=== PATIENT | male | born 1940 | race Caucasian/White ===

== ENCOUNTER → 2024-06-24 16:11 | Outpatient (REF) | payer OTHER, SELFPAY | LOC: RAD 16:11 | PROVIDERS: ATTENDING PHYSICIAN Student in an Organized Health Care Education/Training Program | DX: J18.9 Pneumonia, unspecified organism (principal) | CPT/HCPCS: 71046 ==

== ENCOUNTER 2025-01-08 16:23 | Inpatient (IN) | payer OTHER, SELFPAY ==
[2025-01-08 13:20] VITALS: BMI 31.6
[2025-01-08 13:22] VITALS: BP 169/66
--- NOTE | 2025-01-08 13:25 | ED.GENMED ---
History of Present Illness
General
Chief Complaint: Abdominal Symptoms
Source: patient
Exam Limitations: none
Time Seen by Provider: 01/08/25 13:19
History of Present Illness
History of Present Illness:
See MDM
Past History
Past History
ED Past Medical History: HTN
Social History
Tobacco: Non-smoker
Alcohol: None
Phy Exam
Physical Exam
Physical Exam:
See MDM
Course
Orders/Labs/Results
Orders:
Orders
01/08/25 13:19
IV Insert/Care/Rem.- Treatment PRN
Urinalysis Reflex To Culture Urgent
Date Specimen was Collected: 01/08/25
Time Specimen was Collected: 13:19
01/08/25 13:20
0.9% Sodium Chloride 1000 ml [Nss] 1,000 ml IV BOLUS
Morphine Sulfate 4 mg IV NOW STA
Ondansetron Injectable [Zofran] 4 mg IV NOW STA
Obstruct Series W/PA Chest [CR Obstruct Series W/pa Chest] Urgent
Comment:
Reason For Exam: abd distention and pain
01/08/25 13:22
Complete Blood Count/With Diff Urgent
Comprehensive Metabolic Panel Urgent
Lipase Urgent
01/08/25 13:24
Lipase Urgent
01/08/25 13:25
Electrocardiogram (*1) Urgent
Reason for Study: Abdominal Pain
EKG- Treatment ONCE
01/08/25 13:56
CT Abd/pelvis Wo Iv Cont Urgent
Reason For Exam: abd pain and distention
01/08/25 13:57
HYDROmorphone [Dilaudid] 1 mg IV NOW STA
01/08/25 14:12
PTT Urgent
Prothrombin Time Urgent
01/08/25 15:38
Consult Urology [UROLOGY CONSULT] Urgent
Consulting Provider: Danny Kendall
Was physician already notified: Yes
Abnormal Lab Results
01/08/25 01/08/25
13: 14:12
RBC 3.92 L 10^6/uL
(4.70-6.10)
Hgb 11.3 L g/dL
(13.0-18.0)
Hct 33.2 L %
(39.0-52.0)
Abs Immat Gran (auto) 0.1 H 10^3/uL
(0-0.05)
Absolute Neuts (auto) 8.2 H 10^3/uL
(1.4-6.5)
Absolute Monos (auto) 0.9 H 10^3/uL
(0.1-0.6)
Neutrophils % 77.9 H %
(42.2-75.2)
Lymphocytes % 12.2 L %
(20.5-51.1)
PT 19.5 H Sec
(11.4-14.6)
APTT 36.9 H Sec
(23.4-35.0)
BUN 25 H mg/dl
(9-20)
Creatinine 2.2 H mg/dL
(0.7-1.3)
Glucose 237 H mg/dl
(70-99)
Total Bilirubin 1.7 H mg/dl
(0.2-1.3)
AST 15 L U/L
(17-59)
01/08/25 13:22
01/08/25 13:22
Vital Signs
Initial and Last Documented VS:
Initial Vital Signs
Temp Pulse Resp Pulse Ox
97.9 F 72 19 99
01/08/25 13:20 01/08/25 13:20 01/08/25 13:20 01/08/25 13:20
Last Documented Vital Signs
Temp Pulse Resp BP Pulse Ox
97.9 F 67 18 169/66 99
01/08/25 13:20 01/08/25 13:30 01/08/25 13:30 01/08/25 13:22 01/08/25 13:20
MDM/Problems Addressed
Differential Diagnosis Includes:
CHIEF COMPLAINT(S)
Abdominal pain and symptoms concerning for a bowel obstruction.
HISTORY OF PRESENT ILLNESS
The patient is an 84-year-old male with a history of a previous bowel obstruction 18 months ago, which required a nine-day hospital stay. The patient presented with symptoms similar to the previous obstruction, including abdominal pain, dry heaving,
and nausea that comes and goes. The patient reported passing stool at 3:00 AM this morning and indicated he feels bloated. Since then, he has been unable to pass gas. He recalls the last episode being managed without surgery, potentially with an
NG tube. The patient indicates he is currently experiencing pain. Pt is requesting an NG tube
PHYSICAL EXAM
General: Uncomfortable
Skin: Warm, dry.
Head: Normocephalic, atraumatic
Neck: Appears supple, trachea midline.
Eyes, Ears, Nose, Mouth, and Throat: Moist mucous membranes
Cardiovascular: No signs of cyanosis
Respiratory: Respirations are non-labored.
Abdomen: Distended
Musculoskeletal: No deformities
Neurological: No focal neurological deficit observed.
Psychiatric: Cooperative, appropriate mood and affect.
PLAN
- Administer pain medication to relieve discomfort.
- Perform an abdominal X-ray to assess for signs of small bowel obstruction, with the understanding that if significant dilation is observed, an NG tube may be placed.
- Consider a CT scan after initial X-ray results to further evaluate the severity and extent of the obstruction.
DIFFERENTIAL DIAGNOSIS
The Differential Diagnosis includes, in no particular order and is not limited to:
- Small bowel obstruction
- Ileus
- Gastroenteritis
- Crohns disease
- Diverticulitis
- Constipation
- Malignancy
- Inflammatory bowel disease
- Peptic ulcer disease
- Pancreatitis
SUMMARY OF ENCOUNTER
The patient, an 84-year-old male, presented to the emergency department with symptoms of abdominal pain and discomfort, consistent with a previous episode of bowel obstruction. Initial management focused on pain relief and determining the presence
and severity of an obstruction through imaging. An abdominal X-ray was prioritized for quick assessment and potential confirmation of the obstruction, followed by the decision to place an NG tube based on findings. A CT scan consideration was
mentioned for further diagnostic clarity.
EMERGENCY TREATMENTS ADMINISTERED
Pain medication was provided to address the patients discomfort.
MEDICATION RECONCILIATION
Administered pain medication for abdominal pain management.
MEDICAL DECISION MAKING
-Complexity of Data Reviewed: The patient has a history of prior bowel obstruction managed without surgery, indicating chronic conditions affecting care.
-Data:
Category 1:
- Ordered abdominal X-ray for initial assessment of bowel obstruction. Consideration of CT scan following initial imaging.
Category 3:
- Management plan included discussions of placement of an NG tube contingent on X-ray results.
-Risk:
Consideration of Admission/Observation: Escalation of care including admission/observation was considered given the complexity and risk of the patients presenting complaint, exam findings, and/or their underlying comorbidities. However, ultimately I
feel the patient is safe for outpatient management with close follow-up. Reasoning: Work-up reassuring, does not reveal any acute life/organ-threatening processes, patients symptoms well-controlled upon reevaluation, reexamination is reassuring,
vitals are stable, patient agreeable with discharge, reliable for follow-up.
CARE-UPDATE
01/08/25 - 14:33
The initial x-ray did not reveal air fluid levels; however, it raised concerns for possible ileus or small intestinal obstruction. A CT scan is planned for more detailed assessment.
SUMMARY OF ENCOUNTER
The patient, an 84-year-old male, presented to the emergency department with abdominal pain and symptoms consistent with a bowel obstruction. An urgent abdominal X-ray was obtained, which showed a non-specific bowel pattern without air-fluid levels,
raising no immediate suspicion for obstruction. Subsequently, a CT scan without IV contrast, due to the patients chronic kidney disease, was performed. The CT scan revealed an 8mm kidney stone at the left ureteropelvic junction (UPJ) with
hydronephrosis. The patient required two doses of IV opioids for pain management, which provided some relief, yet he remains uncomfortable in his current state.
DISPOSITION
Admit.
ASSESSMENT
The patient likely has a kidney stone-induced hydronephrosis, contributing to his abdominal symptoms.
EMERGENCY TREATMENTS ADMINISTERED
IV opioids for pain management.
MANAGEMENT OF THE PATIENTS CARE WAS DISCUSSED WITH
Urology will be informed of the current findings and patient status. The hospital service will manage the patients care further upon admission.
REASSESSMENT
Post-medication, the patient is feeling somewhat better, but he is still experiencing significant discomfort.
PLAN
The patient will be admitted to continue the management of his condition, requiring close monitoring and interventions as necessary.
INDEPENDENT REVIEW OF LABS AND INTERPRETATION OF TESTS
- My independent review of the X-ray indicates a non-specific bowel pattern without air-fluid levels suggesting no immediate suspicion for bowel obstruction.
- My independent interpretation of the CT scan shows an 8mm kidney stone at the left UPJ with hydronephrosis.
MEDICATION RECONCILIATION
Two doses of IV opioids were administered for pain management.
MEDICAL DECISION MAKING
-Complexity of Data Reviewed: Chronic conditions affecting care including prior bowel obstruction and chronic kidney disease. Differential diagnoses considered include small bowel obstruction, ileus, gastroenteritis, Crohns disease, diverticulitis,
constipation, malignancy, inflammatory bowel disease, peptic ulcer disease, and pancreatitis.
-Data:
Category 1
- Tests ordered and reviewed include an abdominal X-ray and CT scan without IV contrast.
Category 3
- Management was discussed with the urology team and hospital service for the admission and further management of the patients condition.
-Risk:
Prescription drug management was undertaken with the administration of IV opioids for pain. Consideration of admission/observation was highlighted due to the complexity and risks associated with the patients presenting complaints and underlying
conditions.
DIAGNOSIS
- Kidney stone-induced hydronephrosis (ICD-10: N13.2)
- Chronic kidney disease (ICD-10: N18.9)
*Pulse Oximetry
Patient hypoxic: no
*Critical Care Note
Total Time (30-74mins, 75-104mins- exclusive of procedures): Not Applicable
ED Attending Note
-
Portions of this chart may have been created with voice recognition software.� Occasional wrong word or��sound alike� substitutions may have occurred due to the inherent limitations of voice recognition software.
Discharge Plan
Departure
Patient Disposition: Admit
Date of Disposition: 01/08/25
Time of Disposition: 15:42
Admit to: Med/Surg
Presentation/result/management discussed w/ accepting MD/DO: Hospitalist
Discharge Problem:
Kidney stone on left side
Prescriptions:
No Action
Victoza
0.6 units SC DAILY
atorvastatin 10 MG tablet
20 mg PO QPM
aspirin 81 MG tablet,delayed release (DR/EC)
81 mg PO DAILY
insulin NPH isoph U-100 human [Humulin N NPH U-100 Insulin] 100 UNIT/1 ML suspension
14 units SC DAILY
insulin lispro [Humalog U-100 Insulin] 100 UNIT/ML solution
0 unit SC BID
Patient Comments:
4 to 11 units given
finasteride 5 MG tablet
5 mg PO DAILY
ramipril [Altace] 10 MG capsule
10 mg PO DAILY
alfuzosin 10 MG tablet extended release 24 hr
10 mg PO DAILY
cinnamon bark [Cinnamon] 500 MG capsule
500 mg PO DAILY
insulin detemir U-100 [Levemir U-100 Insulin] 1,000 UNITS/10 ML solution
20 units SC DAILY
insulin detemir U-100 [Levemir U-100 Insulin] 1,000 UNITS/10 ML solution
10 units SC QPM
testosterone [AndroGel] 75 GM gel in metered-dose pump
20.25 mg TD DAILY
mecobalamin (vitamin B12) 1,000 MCG tablet,disintegrating
2,000 mcg sublingual DAILY
Referrals:
Sergio Issa MD [Family Provider, Internal Medicine]
Interventions
Interventions:
*Risk Screen - Suicide Last Done: 01/08/25 13:20
*General Assessment Last Done: 01/08/25 13:20
*Neglect/Abuse Screening Last Done: 01/08/25 13:20
*ED COVID-19 Vaccine History Last Done: 01/08/25 13:20
*ED Influenza Vaccine History Last Done: 01/08/25 13:20
[facility] Fall Risk Assessment Tool Last Done: 01/08/25 13:34
HX-Oprpkk-Lbawjsxety Assessment Last Done: 01/08/25 13:34
Discharge Date and Time
Print Language: RUSSIAN
[2025-01-08] MEDS: ZOFRAN 4 MG IV ×2 (13:28→20:53)
[2025-01-08] MEDS: MORPHINE SULFATE 4 MG IV (13:29)
[2025-01-08] MEDS: NSS 1000 IV ×2 (13:29→18:39)
[2025-01-08 13:34] LABS: Hematocrit 33.2 % (39.0-52.0); Hemoglobin 11.3 g/dL (13.0-18.0); Mean Corp Hgb Conc. 34.0 g/dL (33.0-37.0); Mean Corpuscular Volume 84.7 fL (80.0-94.0); Nucleated Red Blood Cells % 0 % (-); Platelet Count 369 10^3/uL (130-400); Red Cell Dist. Width 11.9 % (11.5-14.5)
[2025-01-08 13:48] LABS: ALT (SGPT) 13 U/L (0-50); AST (SGOT) 15 U/L (17-59); Albumin 4.2 g/dl (3.5-5.0); Alkaline Phosphatase 78 U/L (38-126); Blood Urea Nitrogen 25 mg/dl (9-20); Calcium 8.9 mg/dl (8.4-10.2); Carbon Dioxide 23 mmol/L (22-30); Chloride 104 mmol/L (98-107); Estimated Creatinine Clearance 30 ml/min; Glucose 237 mg/dl (70-99); Lipase 142 U/L (23-300); Potassium 4.6 mmol/L (3.5-5.1); Sodium 135 mmol/L (135-145); Total Protein 7.5 g/dl (6.3-8.2); eGFR 28.99
[2025-01-08] MEDS: DILAUDID 1 MG IV (14:10)
[2025-01-08 14:40] LABS: INR 1.68; PT 19.5 Sec (11.4-14.6)
[2025-01-08 14:41] LABS: APTT 36.9 Sec (23.4-35.0)
[2025-01-08 15:12] VITALS: BP 154/86
--- NOTE | 2025-01-08 15:54 | HPS.HSE ---
Addendum entered and electronically signed by Gal Lemos MD 01/08/25 18:33:
Has PPM in place
Addendum entered and electronically signed by Gal Lemos MD 01/08/25 16:40:
Correction:
JERICA suspect Obstructive nephropathy
Underlying CKD3a/b
HX pHTN
- Hold Ramipril for now
- Avoid any Nephrotoxics
- Trend Cr
Original Note:
Family Physician
-
Family Physician: Sergio Issa MD
Chief Complaint
-
abd pain
History of Present Illness
HPI
84M HX prior SBO 18 months ago, which required a nine-day hospital stay seen at ER:
- pw symptoms similar to the previous obstruction, including abdominal pain, dry heaving, and nausea that comes and goes
- reported passing stool at 3:00 AM this morning and indicated he feels bloated.
- Since then, he has been unable to pass gas.
- last episode being managed without surgery, potentially with an NG tube.- Pt is requesting an NG tube
However< CT AP shows :
1. 8 mm stone at the left ureteropelvic junction, associated with mild left hydronephrosis.
Additional intrarenal stones on the left side measures 1 cm in diameter, nonobstructing. Multiple small stones within the urinary bladder.
2. No evidence of intestinal obstruction or bowel inflammatory process.
Medical History
Past Medical History
Past Medical History: Reports HTN, Hypercholesterolemia, IDDM and Other (BPH )
Past Surgical History: Reports Other
Social History
Tobacco: Non-smoker
Alcohol: None
Family History
Family History: Not pertinent
Allergies / Home Medications
Allergies reflects when Allergies were last updated in [facility].
Home Medications with original date entered in [facility]
Allergy/Medication List:
Allergies
Allergy/AdvReac Type Severity Reaction Status Date / Time
No Known Allergies Allergy Unverified 02/02/16 13:13
Home Medications
Victoza ( GLP1) 0.6 units SC DAILY 02/02/16
alfuzosin 10 mg tablet,extended release 24 hr 10 mg PO DAILY 02/02/16
aspirin 81 mg tablet,delayed release 81 mg PO DAILY 02/02/16
atorvastatin 10 mg tablet 20 mg PO QPM 02/02/16
cinnamon bark 500 mg capsule (Cinnamon) 500 mg PO DAILY 02/02/16
finasteride 5 mg tablet 5 mg PO DAILY 02/02/16
insulin NPH isoph U-100 human 100 unit/mL subcutaneous suspension (Humulin N NPH U-100 Insulin (isophane susp)) 14 units SC DAILY 02/02/16
insulin detemir U-100 100 unit/mL subcutaneous solution (Levemir U-100 Insulin) 10 units SC QPM 02/02/16
insulin detemir U-100 100 unit/mL subcutaneous solution (Levemir U-100 Insulin) 20 units SC DAILY 02/02/16
insulin lispro 100 unit/mL subcutaneous solution (Humalog U-100 Insulin) 0 unit SC BID 02/02/16
mecobalamin (vitamin B12) 1,000 mcg disintegrating tablet,sublingual 2,000 mcg sublingual DAILY 02/02/16
ramipril 10 mg capsule (Altace) 10 mg PO DAILY 02/02/16
testosterone (AndroGel) 20.25 mg TD DAILY 02/02/16
Review of Systems
-
Constitutional: Reports No Symptoms
EENT: Reports No Symptoms
Respiratory: Reports No Symptoms
Cardiac: Reports No Symptoms
Abdomen/GI: Reports No Symptoms
: Reports No Symptoms
Musculoskeletal: Reports No Symptoms
Skin: Reports No Symptoms
Neurological: Reports No Symptoms
Endocrine: Reports No Symptoms
Hematologic/Lymphatic: Reports No Symptoms
Psych: Reports No Symptoms
Physical Exam
Vital Signs
Vital Signs
Temp Pulse Resp BP Pulse Ox
97.9 F 67 18 169/66 99
01/08/25 13:20 01/08/25 13:30 01/08/25 13:30 01/08/25 13:22 01/08/25 13:20
Physical Exam
General: Well Developed, Well Nourished and No Apparent Distress
HEENT: NormoCephalic, Moist mucous membranes and Atraumatic
Respiratory: Clear
Cardiac: S1/S2 and Regular Rhythm; No Murmur or Rub
Rectal: Deferred by Provider
Musculoskeletal: No Clubbing, No Cyanosis and No Edema
Skin: No Rash
Neuro: Nonfocal/grossly intact
Laboratory Results
-
01/08/25 13:22
01/08/25 13:22
Laboratory Results
PT 19.5 Sec (11.4-14.6) H 01/08/25 14:12
INR 1.68 01/08/25 14:12
APTT 36.9 Sec (23.4-35.0) H 01/08/25 14:12
Total Bilirubin 1.7 mg/dl (0.2-1.3) H 01/08/25 13:22
AST 15 U/L (17-59) L 01/08/25 13:22
ALT 13 U/L (0-50) 01/08/25 13:22
Alkaline Phosphatase 78 U/L (38-126) 01/08/25 13:22
Lipase Cancelled 01/08/25 13:24
Data Reviewed
-
CT Scan: Report Reviewed by me
Lab Data: Labs Reviewed by me
Impression/Plan
-
Vital Signs
Temp Pulse Resp BP Pulse Ox
97.9 F 67 18 169/66 99
01/08/25 13:20 01/08/25 13:30 01/08/25 13:30 01/08/25 13:22 01/08/25 13:20
Labs
01/28/16 01/08/25 01/08/25
11:46 13:22 14:12
WBC 10.5
Hgb 11.3 L
Plt Count 369
INR 1.68
BUN 26 H 25 H
Creatinine 1.6 H 2.2 H
Glomerular Filtr Rate 42.5
eGFR 28.99
Total Bilirubin 1.7 H
AST 15 L
CR Obstruct Series W/pa Chest
1. Dilated loops of small bowel, with relative decompression of the colon. Findings may represent adynamic ileus or small intestinal obstruction. Consider CT as clinically appropriate.
2. Clear lungs. Mild cardiac enlargement.
CT Abd/pelvis Wo Iv Cont
1. 8 mm stone at the left ureteropelvic junction, associated with mild left hydronephrosis. Additional intrarenal stones on the left side measures 1 cm in diameter, nonobstructing. Multiple small stones within the urinary bladder.
2. No evidence of intestinal obstruction or bowel inflammatory process.
3. Mild prostatic enlargement.
4. Mild reticular interstitial thickening at each lung base, suggestive of mild senescent change/interstitial fibrosis.
NO prior hospitalist admission:
ASSESSMENT & PLAN
Pending Rx reconciliation
Acute abdominal pain , afebrile, Nl WCC
- 8mm kidney stone at the left ureteropelvic junction (UPJ) with hydronephrosis.
- NPO for pending procedure
- Hold off IV ABx for now ( afebrile and Nl WCC )
- IV NS
- PRN IV analgesia
- PRN anti emetics
- Uro consulted
IDDM
- add ISS low
- decreased Levemir to 50 % of [employer] dose
- Hold NPH
pHTN
- c/w [employer] Ramipril
DVT Px: SCD
Full code
IP MS
--- NOTE | 2025-01-08 17:15 | EDCM ---
Reviewed chart and met with pt and bedside in ED. They live in [address] [facility] with first floor set up.
Independent in ADLs, personal care and ambulation at baseline. No assistive devices.
They are moving to [place] in February, son and his converted part of their home to provide apartment for them. Son is Orthopedic surgeon and DIL is RN.
Confirms RX coverage.
No hx VN or SNF
PCP: Sergio Issa
Pharmacy: [facility]
Anticipate discharge home, CM will continue to follow for any discharge planning needs.
--- NOTE | 2025-01-08 18:17 | CONS.URO ---
Consultation
-
Date/Time Consultation Performed: 1800
Performing Provider: Peffer
Reason for Consultation: Stone
Medical History
History of Present Illness
84M hx of prostate cancer s/p radiation
No prior hx of stones
p/w flank and abd pain
CT showed 8mm L prox ureteral stone and 1cm L renal stone
Admitted due to poor pain control
Elevated creatinine near baseline of around 2 per patient
Has not voided since this AM
Past Medical History
Past Medical History: Other (HTN, Hypercholesterolemia, IDDM, BPH, prostate cancer)
Social History
Tobacco: Non-smoker
Drug: None
Personal:
Living: With Family
Family History
Family History: Reviewed & Not Pertinent
Allergies/Home Medications
Allergies
Allergy/AdvReac Type Severity Reaction Status Date / Time
No Known Allergies Allergy Unverified 02/02/16 13:13
Home Medications
�Medication �Instructions �Recorded �Confirmed �Type
Victoza 0.6 units SC DAILY 02/02/16 02/02/16 History
alfuzosin 10 mg tablet,extended 10 mg PO DAILY 02/02/16 02/02/16 History
release 24 hr
aspirin 81 mg tablet,delayed 81 mg PO DAILY 02/02/16 02/02/16 History
release
atorvastatin 10 mg tablet 20 mg PO QPM 02/02/16 02/02/16 History
cinnamon bark 500 mg capsule 500 mg PO DAILY 02/02/16 02/02/16 History
(Cinnamon)
finasteride 5 mg tablet 5 mg PO DAILY 02/02/16 02/02/16 History
insulin NPH isoph U-100 human 100 14 units SC DAILY 02/02/16 02/02/16 History
unit/mL subcutaneous suspension
(Humulin N NPH U-100 Insulin
(isophane susp))
insulin detemir U-100 100 unit/mL 10 units SC QPM 02/02/16 02/02/16 History
subcutaneous solution (Levemir
U-100 Insulin)
insulin detemir U-100 100 unit/mL 20 units SC DAILY 02/02/16 02/02/16 History
subcutaneous solution (Levemir
U-100 Insulin)
insulin lispro 100 unit/mL 0 unit SC BID 02/02/16 02/02/16 History
subcutaneous solution (Humalog
U-100 Insulin)
mecobalamin (vitamin B12) 1,000 2,000 mcg sublingual DAILY 02/02/16 02/02/16 History
mcg disintegrating
tablet,sublingual
ramipril 10 mg capsule (Altace) 10 mg PO DAILY 02/02/16 02/02/16 History
testosterone (AndroGel) 20.25 mg TD DAILY 02/02/16 02/02/16 History
Physical Exam
Vital Signs
Vital Signs
Temp Pulse Resp BP Pulse Ox
97.9 F 84 20 154/86 98
01/08/25 13:20 01/08/25 15:12 01/08/25 15:12 01/08/25 15:12 01/08/25 15:12
Lab / Testing Results
Laboratory Results
01/08/25 13:22
01/08/25 13:22
Physical Exam
General: Well Developed and Well Nourished
Respiratory: Clear and Non Labored Respirations
GI: Soft and Non Tender
Genito-urinary: No Costovertebral Tend
Neuro: AO x 3
Psych: Calm and Intact Judgement
Assessment / Plan
-
84M with obstructing 8mm L proximal ureteral stone and 1cm L renal stone
Admitted due to pain control
No fever or infectious symptoms
- Obtain urinalysis
- NPO at [facility]
- OR tomorrow for cystoscopy, L ureteral stent, and if no signs of infection attempted L ureteroscopy, laser lithotripsy, stone extraction
- Ceftriaxone ppx
[2025-01-08 18:20] VITALS: BP 115/70; BMI 30.3
[2025-01-08 18:53] LABS: Glucose - Point of Care 191 mg/dl (70-99)
[2025-01-08] MEDS: NOVOLOG FLEXPEN-LOW RESISTANCE 1 UNITS SC (19:58)
[2025-01-08] MEDS: LANTUS 0.05 UNITS SC (19:59)
[2025-01-08] MEDS: TYLENOL 650 MG PO (20:56)
[2025-01-08 21:09] LABS: Glucose - Point of Care 233 mg/dl (70-99)
[2025-01-08 23:00] VITALS: BP 163/67
[2025-01-08 23:30] VITALS: BMI 30.3
[2025-01-09] VITALS (9 sets, daily range): BP systolic 92–181; BP diastolic 48–83
[2025-01-09] LABS: Urine Character Clear (Clear)
[2025-01-09 00:11] LABS: Urine Squamous Cell 0-2 /LPF (Few); Urine White Cell 30-40 /HPF (0-5)
[2025-01-09 00:23] LABS: Glucose - Point of Care 192 mg/dl (70-99)
[2025-01-09] MEDS: TYLENOL 650 MG PO ×2 (02:56→20:55)
[2025-01-09 05:45] LABS: Glucose - Point of Care 176 mg/dl (70-99)
[2025-01-09] MEDS: ZOFRAN 4 MG IV ×2 (06:29→15:58)
[2025-01-09] MEDS: DILAUDID 1 MG IV ×2 (06:30→18:48)
[2025-01-09] MEDS: NOVOLOG FLEXPEN-LOW RESISTANCE SC ×2 (06:32→13:12)
[2025-01-09 06:54] LABS: Hematocrit 30.8 % (39.0-52.0); Hemoglobin 10.6 g/dL (13.0-18.0); Mean Corp Hgb Conc. 34.4 g/dL (33.0-37.0); Mean Corpuscular Volume 86.0 fL (80.0-94.0); Platelet Count 341 10^3/uL (130-400); Red Cell Dist. Width 11.8 % (11.5-14.5)
[2025-01-09 07:21] LABS: Blood Urea Nitrogen 26 mg/dl (9-20); Calcium 8.6 mg/dl (8.4-10.2); Carbon Dioxide 23 mmol/L (22-30); Chloride 107 mmol/L (98-107); Estimated Creatinine Clearance 25 ml/min; Glucose 162 mg/dl (70-99); Potassium 4.5 mmol/L (3.5-5.1); Sodium 135 mmol/L (135-145); eGFR 23.73
[2025-01-09] MEDS: STERILE WATER FOR INJECTION 10 ML IV (09:10)
[2025-01-09] MEDS: ROCEPHIN 1000 MG IV (09:11)
--- NOTE | 2025-01-09 10:24 | W.PN.HOSP.TC ---
Today's Communication/Plan
-
Cystoscopy
Empiric antibiotics
Hold Xarelto
Monitor volume status closely
Assessment / Plan
Assessment / Plan
Impression:
84 years old male with history of prostate carcinoma status postradiation, remote presents with acute onset of left flank and abdominal pain. CT showed left proximal ureteral stone and a 1 cm left renal stone.
Left nephrolithiasis with hydronephrosis
Conditions prior to admission
Dilated cardiomyopathy
Paroxysmal atrial fibrillation
Anticoagulation with Xarelto
Sick sinus syndrome status post pacemaker
IDDM
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
Prostate cancer status postradiation.
Imaging
CT scan of the abdomen pelvis
1. 8 mm stone at the left ureteropelvic junction, associated with mild left hydronephrosis. Additional intrarenal stones on the left side measures 1 cm in diameter, nonobstructing. Multiple small stones within the urinary bladder.
2. No evidence of intestinal obstruction or bowel inflammatory process.
3. Mild prostatic enlargement.
4. Mild reticular interstitial thickening at each lung base, suggestive of mild senescent change/interstitial fibrosis.
Plan
Left nephrolithiasis with hydronephrosis.
Urology consulted with plan for cystoscopy today.
Afebrile, noted mild leukocytosis.
Noted with abnormal urinalysis suggestive of UTI.
Urine cultures pending
Initiated empiric antibiotics ceftriaxone.
Hold anticoagulation/Xarelto pending cystoscopy
Cardiovascular.
History of dilated cardiomyopathy.
Unknown details.
Volume status seems to be compensated.
Continue Coreg with caution for possible hypotension.
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
Obtain baseline ECG
Paroxysmal atrial fibrillation
Status post pacemaker
Anticoagulation with Xarelto. Hold prior to procedure
CKD stage IIIa�BP
Baseline creatinine around 2.3.
Urinalysis noted with proteinuria.
Patient is following with nephrology.
Follow-up BMP
Diabetes/IDDM
Update hemoglobin A1c
Preadmission regimen including Farxiga, Mounjaro, short acting insulin sliding scale.
Currently n.p.o. anticipating procedure
Basal bolus protocol with serial Accu-Cheks
Reduce Lantus to 5 units every afternoon. Adjust as required.
Anticipated Discharge: 24 - 48 hours
Subjective/Interval History
-
Date of Service: January 09, 2025
Objective Data
-
Labs:
Laboratory Results
01/09/25
06:15
WBC 11.1 H
Hgb 10.6 L
Hct 30.8 L
Plt Count 341
Sodium 135
Potassium 4.5
Chloride 107
Carbon Dioxide 23
BUN 26 H
Creatinine 2.6 H
Glucose 162 H
Calcium 8.6
Vital Signs:
Vital Signs
Temp Pulse Resp BP Pulse Ox
99.1 F 83 16 128/83 94
01/09/25 07:20 01/09/25 07:20 01/09/25 07:20 01/09/25 07:20 01/09/25 07:20
I&O
01/08/25 01/09/25 01/10/25
06:59 06:59 06:59
Intake Total 1200 / 1200
Output Total 650 / 650
Balance 550 / 550
Physical Exam
-
General: Well Developed and No Apparent Distress
HEENT: Normocephalic, Atraumatic and Moist Mucous Membranes
Respiratory: Clear to Auscultation
Cardiac: Regular Rhythm and S1/S2; Negative Murmur, Rub or Gallop
GI: Soft, Nontender, Nondistended and Normal Bowel Sounds; Negative Organomegaly
Rectal: Deferred by Provider
Musculoskeletal: No Clubbing, No Cyanosis and No Edema
Skin: Negative Rash
Neuro: Nonfocal/Grossly Intact
[2025-01-09 10:43] LABS: Glycohemoglobin (HgbA1c) 9.6 % (4.0-5.9)
[2025-01-09] MEDS: NSS 1000 IV (11:35)
[2025-01-09 11:59] LABS: Glucose - Point of Care 183 mg/dl (70-99)
--- NOTE | 2025-01-09 15:06 | W.PN.URO.CBU ---
Today's Communication / Plan
-
- No further antibiotics needed
- Okay to resume anticoagulation 01/10
- Pyridium as needed for dysuria
- Stable for discharge from standpoint
- Outpatient follow up for stent removal in 2 weeks
Assessment / Plan
-
84M with obstructing 8mm L proximal ureteral stone and 1cm L renal stone
Admitted due to pain control
No fever or infectious symptoms
- s/p cystoscopy, L ureteroscopy, laser lithotripsy, stone extraction, stent placement, bladder stone removal
- Ceftriaxone ppx given preop
- No further antibiotics needed
- renal function likely at baseline (around 2 per patient)
Stable for discharge from standpoint
Outpatient follow up for stent removal in 2 weeks
Diagnosis
-
Date of Service: January 09, 2025
-
Patient Diagnosis:
L renal stones/ureteral stone
Bladder stones
Post Op Day:
Subjective
-
tolerated surgery well
Objective
-
Vital Signs
Temp Pulse Resp BP Pulse Ox
99.1 F 83 16 128/83 94
01/09/25 07:20 01/09/25 07:20 01/09/25 07:20 01/09/25 07:20 01/09/25 07:20
Intake and Output
01/08/25 01/09/25 01/10/25
06:59 06:59 06:59
Intake Total 1200 / 1200
Output Total 650 / 650
Balance 550 / 550
Intake:
Oral fluids 480 / 480
IV fluids (Total) 720 / 720
Output:
Urine, Voided 650 / 650
Laboratory Results
01/09/25 06:15
01/09/25 06:15
Physical Exam
-
General - well developed, well nourished, no acute distress
Chest - clear
[2025-01-09 15:18] LABS: Glucose - Point of Care 175 mg/dl (70-99)
[2025-01-09] MEDS: FLOMAX 0.4 MG PO (15:43)
--- NOTE | 2025-01-09 16:02 | W.PN.UPDATE ---
Addendum entered and electronically signed by Sorin Amaya MD 01/09/25 16:07:
Okay to stop antibiotics.
Hold Farxiga for week
Resume anticoagulation on 01/10
Original Note:
Update Note
Progress Note Update
Discussed with urology
Status post cystoscopy with stone removal and stent placement
No evidence for infection
Patient seen in PACU stable hemodynamically and recovering from anesthesia
Given multiple comorbidities will observe overnight.
Follow-up BMP
[2025-01-09] MEDS: COREG 50 MG PO (16:23)
[2025-01-09 18:46] LABS: Glucose - Point of Care 192 mg/dl (70-99)
[2025-01-09] MEDS: LANTUS 0.05 UNITS SC (18:48)
[2025-01-09] MEDS: LIPITOR 40 MG PO (18:49)
[2025-01-09] MEDS: NOVOLOG FLEXPEN-LOW RESISTANCE 1 UNITS SC (18:49)
[2025-01-10 00:08] LABS: Glucose - Point of Care 270 mg/dl (70-99)
[2025-01-10] MEDS: DILAUDID 1 MG IV ×2 (00:39→05:22)
[2025-01-10] MEDS: NOVOLOG FLEXPEN-LOW RESISTANCE SC (00:45)
[2025-01-10 01:43] VITALS: BP 131/60
[2025-01-10 03:34] VITALS: BP 127/66
--- NOTE | 2025-01-10 06:22 | PTCARENOTE ---
Patient reported lower abdominal pain and pain with urination. PRN Dilaudid, Tylenol and Pyridium given earlier in the shift. At start of shift, urine was wine colored, (same as reported by kailee SAEED), then bloody/tea colored after first dose of
Pyridium.
Later, patient reported pain was better until he had to urinate this morning around 0530. He was visibly in uncomfortable. PRN Dilaudid and Pyridium given. Discussed w/ A[facility]IC PHYSIOTHERAPIST, says it's not abnormal for bloody urine s/p procedures the day prior and
confirmed that patient has labs ordered in AM.
[2025-01-10 06:58] LABS: Hematocrit 30.7 % (39.0-52.0); Hemoglobin 10.3 g/dL (13.0-18.0); Mean Corp Hgb Conc. 33.6 g/dL (33.0-37.0); Mean Corpuscular Volume 87.7 fL (80.0-94.0); Nucleated Red Blood Cells % 0 % (-); Platelet Count 323 10^3/uL (130-400); Red Cell Dist. Width 12.0 % (11.5-14.5)
[2025-01-10 07:15] LABS: Glucose - Point of Care 249 mg/dl (70-99)
[2025-01-10 07:42] LABS: Blood Urea Nitrogen 28 mg/dl (9-20); Calcium 8.0 mg/dl (8.4-10.2); Carbon Dioxide 23 mmol/L (22-30); Chloride 107 mmol/L (98-107); Estimated Creatinine Clearance 26 ml/min; Glucose 223 mg/dl (70-99); Potassium 4.7 mmol/L (3.5-5.1); Sodium 135 mmol/L (135-145); eGFR 24.87
[2025-01-10] MEDS: NSS 1000 IV (07:51)
[2025-01-10] MEDS: COREG 25 MG PO (07:52)
[2025-01-10] MEDS: NOVOLOG FLEXPEN-LOW RESISTANCE 2 UNITS SC (07:53)
[2025-01-10 08:43] VITALS: BP 148/59
[2025-01-10 11:26] VITALS: BP 117/61; BP 117/62; BP 118/60; BP 157/70; PULSE 62; PULSE 64; PULSE 71
--- NOTE | 2025-01-10 12:06 | CM ---
Patient for discharge home today. IMM completed in ED on 01/08/25 at 14;00. CM will review with patient and plan is for discharge home with family transportation. CM will continue to follow for discharge planning needs.
Plan; home with no needs.
[2025-01-10 12:15] LABS: Glucose - Point of Care 276 mg/dl (70-99)
[2025-01-10] MEDS: NOVOLOG FLEXPEN-LOW RESISTANCE 3 UNITS SC (12:23)
--- NOTE | 2025-01-10 13:12 | W.DCSUMMARY ---
Discharge Summary
Discharge Data
Date of Admission: 01/08/25
Date of Discharge: 01/10/25
-
Pending Results: No
Hospital Course
84 male history of prostate cancer s/p radiation, hypertension, HLD, IDDM, BPH
Presented with abdominal pain dry heaving nausea. CT abdomen pelvis demonstrated 8 mm stone in the left uteropelvic junction associated with mild left hydronephrosis. Urology consulted was taken to the OR for cystoscopy left urethral stent, laser
lithotripsy stone extraction with bladder stone removal. Was provided with IV antibiotics preoperatively. Postoperatively urology recommended no further antibiotics required. Will need urology follow-up in the next 2 weeks for stent removal. Has
been using Farxiga, if develops UTI/recurrent UTIs in the future will need to discontinue Farxiga altogether otherwise at this time can resume Farxiga in 1 week
CTAP
IMPRESSION:
1. 8 mm stone at the left ureteropelvic junction, associated with mild left hydronephrosis. Additional intrarenal stones on the left side measures 1 cm in diameter, nonobstructing. Multiple small stones within the urinary bladder.
2. No evidence of intestinal obstruction or bowel inflammatory process.
3. Mild prostatic enlargement.
4. Mild reticular interstitial thickening at each lung base, suggestive of mild senescent change/interstitial fibrosis.
Abdominal Xray
IMPRESSION:
Fluoroscopic guidance for a urologic procedure. Please see the procedural report for further details.
Follow up with Dr. Kendall in about 2 weeks for removal of the stent
You can purchase phenazopyridine at your pharmacy (common brand AZO) which can be taken up to 3 times per day as needed for urine burning
[facility]: [phone]
Seen and examined on day of discharge which was 01/10/2025. No new complaints. No acute overnight events
Still of note blood in urine
NAD
Scleral Anicteric
MMM
No JVD
CTABL
RRR, S1/S2
Soft, NT, ND, BS+
Warm, Dry
AAOx3
Calm
More than 30 minutes spent in discharge including
Final examination of the patient
Summarizing hospital stay
Instructions for continuing care to all relevant caregivers
Preparation of discharge records, prescriptions, and referral forms
Total time spent (in minutes): 33mins
Discharge Plan
-
Patient Disposition: Home (Routine Discharge)
Discharge Diagnosis/Procedures: Left nephrolithiasis with hydronephrosis
Conditions prior to admission
Dilated cardiomyopathy
Paroxysmal atrial fibrillation
Anticoagulation with Xarelto
Sick sinus syndrome status post pacemaker
IDDM
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
Prostate cancer status postradiation.
Condition: Good
Diet: 2 Gram Sodium
Activity Restrictions/Additional Instructions:
Presented with abdominal pain dry heaving nausea. CT abdomen pelvis demonstrated 8 mm stone in the left uteropelvic junction associated with mild left hydronephrosis. Urology consulted was taken to the OR for cystoscopy left urethral stent, laser
lithotripsy stone extraction with bladder stone removal. Was provided with IV antibiotics preoperatively. Postoperatively urology recommended no further antibiotics required. Will need urology follow-up in the next 2 weeks for stent removal. Has
been using Farxiga, if develops UTI/recurrent UTIs in the future will need to discontinue Farxiga altogether otherwise at this time can resume Farxiga in 1 week
CTAP
IMPRESSION:
1. 8 mm stone at the left ureteropelvic junction, associated with mild left hydronephrosis. Additional intrarenal stones on the left side measures 1 cm in diameter, nonobstructing. Multiple small stones within the urinary bladder.
2. No evidence of intestinal obstruction or bowel inflammatory process.
3. Mild prostatic enlargement.
4. Mild reticular interstitial thickening at each lung base, suggestive of mild senescent change/interstitial fibrosis.
Abdominal Xray
IMPRESSION:
Fluoroscopic guidance for a urologic procedure. Please see the procedural report for further details.
Follow up with Dr. Kendall in about 2 weeks for removal of the stent
You can purchase phenazopyridine at your pharmacy (common brand AZO) which can be taken up to 3 times per day as needed for urine burning
[facility]: [phone]
Referrals:
Sergio Issa MD [Family Provider, Internal Medicine]
Prescriptions:
New
phenazopyridine 200 mg Tablet
200 mg PO TIDPRN PRN (Reason: dysuria) Qty: 10 0RF
Continued
atorvastatin [Lipitor] 40 mg Tablet
40 mg PO QPM
carvedilol [Coreg] 25 mg Tablet
25 mg PO DAILY
carvedilol [Coreg] 25 mg Tablet
50 mg PO QPM
insulin aspart U-100 [Novolog FlexPen U-100 Insulin] 100 unit/mL (3 mL) Insulin Pen
20 sliding scale dose SC AC
Xarelto 15 mg Tablet
15 mg PO QPM
Mounjaro 5 mg/0.5 mL Pen Injector
5 mg SC QWEEK
Held
dapagliflozin propanediol [Farxiga] 10 mg Tablet
10 mg PO DAILY
Hold Instructions: Resume on 01/16/25.
Discharge Orders:
Discharge Patient (As Directed); Ordered 01/10/25
Ordered By: Niraj Cabrera
Discharge Date and Time
Print Language: AZERI
[2025-01-10 14:35] VITALS: BP 138/74
[2025-01-15 08:48] LABS: Stone Analysis Mass 82 mg
== END 2025-01-10 15:11 | disposition home or self-care (01) | DRG 660 ==
LOC: 4 WEST ACU 16:23
PROVIDERS: Internal Medicine; Registered Nurse; ADMITTING PHYSICIAN Internal Medicine; ATTENDING PHYSICIAN Hospitalist; CONSULT PHYSICIAN Urology; EMERGENCY PHYSICIAN Student in an Organized Health Care Education/Training Program; FAMILY PHYSICIAN Internal Medicine
PROC: 0TC18ZZ Extirpation of Matter from Left Kidney, Via Natural or Artificial Opening Endoscopic (ICD-10-PCS; 2025-01-09)
PROC: 0T778DZ Dilation of Left Ureter with Intraluminal Device, Via Natural or Artificial Opening Endoscopic (ICD-10-PCS; 2025-01-09)
PROC: 0TC78ZZ Extirpation of Matter from Left Ureter, Via Natural or Artificial Opening Endoscopic (ICD-10-PCS; 2025-01-09)
PROC: 0TCB8ZZ Extirpation of Matter from Bladder, Via Natural or Artificial Opening Endoscopic (ICD-10-PCS; 2025-01-09)
DX: N13.2 Hydronephrosis with renal and ureteral calculous obstruction (principal); I42.0 Dilated cardiomyopathy; I49.5 Sick sinus syndrome; I12.9 Hypertensive chronic kidney disease with stage 1 through stage 4 chronic kidney disease, or unspecified chronic kidney disease; N17.9 Acute kidney failure, unspecified; N18.31 Chronic kidney disease, stage 3a; E11.22 Type 2 diabetes mellitus with diabetic chronic kidney disease; I48.0 Paroxysmal atrial fibrillation; N21.0 Calculus in bladder; Z79.82 Long term (current) use of aspirin; Z79.84 Long term (current) use of oral hypoglycemic drugs; Z79.4 Long term (current) use of insulin; Z79.01 Long term (current) use of anticoagulants; Z79.899 Other long term (current) drug therapy; Z92.3 Personal history of irradiation; Z85.46 Personal history of malignant neoplasm of prostate; Z95.0 Presence of cardiac pacemaker
CPT/HCPCS: 74018; 74022; 74176; 76000; 80048; 80053; 81003; 81015; 82365; 82962; 83036; 83690; 85025; 85027; 85610; 85730; 87086; 93005; 96374; 96375; 99285; A4300